=== PATIENT | male | born 1985 | race Caucasian/White ===

== ENCOUNTER 2019-08-18 22:59 | Emergency (ER) | payer MEDICARE, BC ==
[~2019-08-18] VITALS: Ht 167.6 cm; Wt 101.4 kg
[2019-08-18] MEDS ORDERED: CONCERTA54 MG PO (23:20)
[2019-08-18] MEDS ORDERED: MULTI VITAMINS1 TAB PO (23:21)
[2019-08-18] MEDS ORDERED: NATURAL IRON65 MG (23:22)
[2019-08-18] MEDS ORDERED: B-121000 MCG PO (23:22)
[2019-08-18 23:38] LABS: BASO % 0.2 % (0.0-2.0); EOS % 0.3 % (0-4.0); GRAN # 5.9 (1.4-6.5); GRAN % 58.3 % (42.2-75.2); HEMOGLOBIN 14.1 g/dl (13.5-18.0); LYMPH # 3.4 (1.2-3.4); LYMPH % 33.3 % (20.0-51.0); MEAN CELL VOLUME 90 fl (80.0-100.0); MEAN CORPUSCULAR HEMOGLOBIN 32 pg (27.0-31.0); MEAN CORPUSCULAR HGB CONC 35 g/dl (33.0-37.0); MEAN PLATELET VOLUME 9.2 fl (7.4-10.4); MONO # 0.8 (0.1-0.6); MONO % 7.6 % (1.7-9.3); PLATELET COUNT 287 K/mm3 (130-400); RED BLOOD COUNT 4.46 M/mm3 (4.20-5.60); REDCELL DISTRIBUTION WIDTH-CV 12.1 % (11.5-14.5)
[2019-08-18 23:48] LABS: ALBUMIN 4.5 gm/dL (3.5-5.0); BILIRUBIN,TOTAL 0.4 mg/dL (0.0-1.0); CALCIUM 9.4 mg/dL (8.4-10.2); CREATININE, serum 0.92 (0.66-1.25); TOTAL PROTEIN 7.4 gm/dL (6.4-8.2)
[2019-08-19 00:23] VITALS: BP 142/62; PULSE 76; TEMP 98.2
== END 2019-08-19 00:26 | disposition home or self-care (01) ==
LOC: COL.ER 22:59
PROVIDERS: Emergency Medicine
DX: R52 Pain, unspecified (principal); F90.9 Attention-deficit hyperactivity disorder, unspecified type

== ENCOUNTER 2019-08-22 22:42 | Emergency (ER) | payer MEDICARE, BC ==
[~2019-08-22] VITALS: Ht 167.6 cm; Wt 101.4 kg
[~2019-08-22 22:42] MED LIST: B-121000 MCG PO; CONCERTA54 MG PO; MULTI VITAMINS1 TAB PO; NATURAL IRON65 MG
[2019-08-22 22:58] VITALS: BP 130/87; TEMP 97.6
[2019-08-22] MEDS ORDERED: ATARAX 25MG25 MG/TAB PO ×2 (23:01→23:50)
[2019-08-23 00:05] VITALS: PULSE 91
== END 2019-08-23 00:05 | disposition home or self-care (01) ==
LOC: COL.ER 22:42
DX: R21 Rash and other nonspecific skin eruption (principal)

== ENCOUNTER → 2019-09-21 | Outpatient (CLI) | payer MEDICARE, BC ==
[~2019-09-21] MED LIST changes: +ATARAX 25MG25 MG/TAB PO
== END ==
LOC: COL.RAD 09:38
DX: K76.89 Other specified diseases of liver (principal); M79.81 Nontraumatic hematoma of soft tissue; R10.2 Pelvic and perineal pain
CPT/HCPCS: Q9967

== ENCOUNTER → 2019-09-29 | Outpatient (CLI) | payer MEDICARE, BC | LOC: COL.RAD 11:29 | DX: R22.9 Localized swelling, mass and lump, unspecified (principal) ==

== ENCOUNTER → 2019-10-14 | Outpatient (CLI) | payer MEDICARE, BC | LOC: COL.RAD 06:57 | DX: K76.9 Liver disease, unspecified (principal) ==

== ENCOUNTER → 2021-12-03 | Outpatient (CLI) | payer MEDICARE, BC | LOC: COL.RAD 08:31 | DX: R10.11 Right upper quadrant pain (principal); R19.7 Diarrhea, unspecified ==

== ENCOUNTER → 2022-01-16 | Outpatient (CLI) | payer MEDICARE, BC | LOC: COL.RAD 14:04 | DX: R10.32 Left lower quadrant pain (principal) | CPT/HCPCS: Q9967 ==

== ENCOUNTER → 2022-01-30 | Outpatient (CLI) | payer MEDICARE, BC | LOC: COL.RAD 13:41 | DX: K76.9 Liver disease, unspecified (principal); R93.5 Abnormal findings on diagnostic imaging of other abdominal regions, including retroperitoneum | CPT/HCPCS: Q9967 ==

== ENCOUNTER 2023-06-30 22:25 | Emergency (ER) | payer MEDICARE, BC ==
[~2023-06-30] VITALS: Ht 167.6 cm; Wt 98.2 kg
[2023-06-30 22:36] VITALS: TEMP 98.7
[2023-06-30 23:09] LABS: BASO % 0.3 % (0.0-2.0); GRAN # 6.9 K/mm3 (1.4-6.5); GRAN % 61.5 % (42.2-75.2); HEMATOCRIT 42.8 % (42.0-52.0); HEMOGLOBIN 15.2 g/dl (13.5-18.0); LYMPH # 3.5 K/mm3 (1.2-3.4); LYMPH % 31.2 % (20.0-51.0); MEAN CELL VOLUME 90 fl (80.0-100.0); MEAN CORPUSCULAR HEMOGLOBIN 32 pg (27-31); MEAN CORPUSCULAR HGB CONC 36 g/dl (33.0-37.0); MEAN PLATELET VOLUME 9.4 fl (7.4-10.4); MONO # 0.7 K/mm3 (0.1-0.6); MONO % 6.6 % (1.7-9.3); PLATELET COUNT 335 K/mm3 (130-400); RED BLOOD COUNT 4.74 M/mm3 (4.20-5.60)
[2023-06-30 23:12] LABS: INR 1.1 (0.8-3.0); PROTHROMBIN TIME 11.5 SECONDS (9.7-12.8)
[2023-06-30 23:24] LABS: ALANINE AMINOTRANSFERASE 23 U/L (0-55); ALBUMIN 4.1 gm/dL (3.5-5.0); ALKALINE PHOSPHATASE 47 U/L (40-150); ANION GAP 12 mmol/L (7-16); AST,SGOT 15 U/L (5-34); BILIRUBIN,TOTAL 0.4 mg/dL (0.2-1.2); BLOOD UREA NITROGEN 28 mg/dL (9-21); CALCIUM 9.4 mg/dL (8.4-10.2); CARBON DIOXIDE 19 mmol/L (22-29); CHLORIDE 106 mmol/L (98-107); CREATININE, serum 0.95 mg/dL (0.72-1.25); GLUCOSE 110 mg/dL (70-99); LIPASE 19 U/L (8-78); POTASSIUM 3.5 mmol/L (3.5-4.5); SODIUM 137 mmol/L (136-145); TOTAL PROTEIN 7.1 gm/dL (6.2-8.1)
[2023-06-30 23:28] LABS: D-DIMER < 200.00 ng/mLDDu (200-230)
[2023-06-30 23:31] LABS: TROPONIN-I < 0.010 ng/mL (0.00-0.033)
[2023-07-01] MEDS ORDERED: Acetaminophen 500 MG TAB PO ONE (02:45)
[2023-07-01 03:27] VITALS: BP 122/81; PULSE 80
== END 2023-07-01 03:30 | disposition home or self-care (01) ==
LOC: COL.ER 22:25
PROVIDERS: Emergency Medicine
DX: R07.89 Other chest pain (principal); I73.81 Erythromelalgia; Z79.52 Long term (current) use of systemic steroids; Z79.899 Other long term (current) drug therapy

== ENCOUNTER → 2023-12-15 | Outpatient (CLI) | payer MEDICARE, BC ==
[~2023-12-15] MED LIST changes: +Gadoterate 20 ML VIAL IV ONE
== END ==
LOC: COL.RAD 09:34
DX: R51.9 Headache, unspecified (principal); L29.9 Pruritus, unspecified; I73.81 Erythromelalgia; G95.9 Disease of spinal cord, unspecified; E63.9 Nutritional deficiency, unspecified; R10.9 Unspecified abdominal pain; R29.2 Abnormal reflex; Z79.899 Other long term (current) drug therapy
CPT/HCPCS: A9575